=== PATIENT | female | born 1955 | race Caucasian/White ===

== ENCOUNTER 2020-08-15 19:38 | Inpatient (IN) | payer OTHER ==
[2020-08-15] MEDS ORDERED: Ondansetron 4 MG/2 ML SDV IVPUSH ONE (20:14)
[2020-08-15] MEDS ORDERED: Sodium Chloride 0.9% 1,000 ML IV SCH (20:15)
--- NOTE | 2020-08-15 20:16 | EDM.PDOC ---
ED HPI GENERAL MEDICAL PROBLEM - General Chief Complaint: Gastrointestinal Problem Stated Complaint: SWOLOWED A COUPLE OUNCES OF ANTI FREEZE Time Seen by Provider: 08/15/20 19:48 Source of Information: Reports: Patient, Family () History Limitations: Reports: No Limitations - History of Present Illness INITIAL COMMENTS - FREE TEXT/NARRATIVE: Mrs. Dominique is a very pleasant 65-year-old woman who now presents to the ED after accidentally drinking some [employer] washer fluid containing methanol around 19:20 tonight. She states that her had [employer] Washer -20 degrees fluid in a bottle, and that she took a couple of swings from it, thinking that it was a beverage, before realizing that it tasted funny. The label on the [employer] washer jug indicates the ingredients as water, methyl alcohol, and dye, but does not give the relative percentages. The patient contacted Poison Control, who recommended that she come to the ED for evaluation. We in turn spoke to Poison Control, who advised us that the patient may have consumed a toxic dose, and therefore recommended that we start her on fomepizole. The patient states that she is nauseated, but she has not vomited. She denies having any abdominal pain. The patient acknowledges that she drank 1 glass of wine earlier tonight, as well. Here in the ED, the patient's initial BP is found to be elevated at 185/90, otherwise, she is hemodynamic stable, afebrile, saturating 95% on room air. Other than tonight's event, the patient denies having a recent fever, chills, sore throat, ear pain, nasal or sinus congestion, cough, dyspnea, chest pain, palpitations, nausea, vomiting, constipation, diarrhea, abdominal pain, urinary symptoms, recent weight gain or weight loss, recent bloody bowel movements or black bowel movements, recent joint aches, headaches, or rashes. The patient and her are visiting from [facility]. - Related Data Allergies Allergy/AdvReac Type Severity Reaction Status Date / Time No Known Allergies Allergy Verified 08/15/20 19:45 Home Meds: Home Meds Levothyroxine Sodium [Synthroid] 150 mcg PO DAILY 08/15/20 [History] Losartan [Cozaar] 50 mg PO DAILY 08/15/20 [History] Past Medical History Cardiovascular History: Reports: Hypertension Musculoskeletal History: Reports: Osteoarthritis Endocrine/Metabolic History: Reports: Hypothyroidism (following thyroidectomy), Obesity/BMI 30+ - Past Surgical History HEENT Surgical History: Reports: Naso-Sinus Surgery (x 2) Female Surgical History: Reports: Section (x 1) Endocrine Surgical History: Reports: Thyroidectomy (2011, due to multiple nodules) Musculoskeletal Surgical History: Reports: Knee Replacement (bilateral) Social & Family History - Tobacco Use Tobacco Use Status *Q: Never Tobacco User Second Hand Smoke Exposure: No - Alcohol Use Alcohol Use History: Yes Alcohol Use Frequency: Socially - Recreational Drug Use Recreational Drug Use: Yes Drug Use in Last 12 Months: Yes Recreational Drug Type: Reports: Marijuana/Hashish (oral THC/CBD drops regularly) - Living Situation & Occupation Living situation: Reports: , with Spouse Occupation: Retired ED ROS GENERAL - Review of Systems Review Of Systems: Comprehensive ROS is negative, except as noted in HPI. ED EXAM, GENERAL - Physical Exam Exam: See Below Exam Limited By: No Limitations General Appearance: Alert, WD/WN, No Apparent Distress Eye Exam: Bilateral Eye: EOMI, Normal Inspection Ears: Normal External Exam, Hearing Grossly Normal Nose: Normal Inspection Throat/Mouth: Normal Inspection, Normal Lips, Normal Voice, No Airway Compromise Head: Atraumatic, Normocephalic Neck: Normal Inspection, Full Range of Motion Respiratory/Chest: No Respiratory Distress, Lungs Clear, Normal Breath Sounds, No Accessory Muscle Use Cardiovascular: Normal Peripheral Pulses, Regular Rate, Rhythm, No Edema, No Gallop, No JVD, No Murmur, No Rub Peripheral Pulses: 3+: Radial (L), Radial (R) GI/Abdominal: Normal Bowel Sounds, Soft, Non-Tender, No Organomegaly, No Distention, No Abnormal Bruit, No Mass Back Exam: Normal Inspection, Full Range of Motion, NT Extremities: Normal Inspection, Normal Range of Motion, No Pedal Edema, Normal Capillary Refill Neurological: Alert, Oriented, Normal Cognition, No Motor/Sensory Deficits Psychiatric: Normal Affect Skin Exam: Warm, Dry, Intact, Normal Color, No Rash #1 Interpretation EKG Date: 08/15/20 Time: 20:17 Rhythm: NSR Rate (Beats/Min): 77 [place]: Normal P-Wave: Enlarged (LAE) QRS: Other (Late transition) ST-T: Normal QT: Normal Comparison: NA - No Prior EKG Course - Vital Signs Last Recorded V/S: Last Vital Signs Temp 36.4 C 08/15/20 19:43 Pulse 79 08/15/20 19:43 Resp 16 08/15/20 19:43 BP 185/90 H 08/15/20 19:43 Pulse Ox 95 08/15/20 19:43 - Orders/Labs/Meds Orders: Active Orders 24 hr Category Date Time Status Accu Check [Blood Glucose Check, Bedside] [] ONETIME Care 08/15/20 20:05 Active EKG Documentation Completion [] STAT Care 08/15/20 20:05 Active Fomepizole 1 gm Med 08/15/20 21:00 Active Sodium Chloride 0.9% [Normal Saline] 100 ml IV Q12HR Sodium Chloride 0.9% [Normal Saline] 1,000 ml Med 08/15/20 20:15 Active IV ASDIRECTED Medication Orders Fomepizole 1 gm/ Sodium (Chloride) 101 mls @ 240.38 mls/hr IV Q12HR [facility] Last Admin: 08/15/20 20:29 Dose: 2.38 gm/hr, 240.38 mls/hr Documented by: DANILO Sodium Chloride (Normal Saline) 1,000 mls @ 150 mls/hr IV ASDIRECTED [facility] Last Admin: 08/15/20 20:29 Dose: 150 mls/hr Documented by: DANILO Labs: Laboratory Tests 08/15/20 08/15/20 08/15/20 Range/Units 19:54 19:54 20:20 Puncture Site Lt radial ABG pH 7.41 (7.35-7.45) ABG pCO2 38.1 (35.0-45.0) mmHg ABG pO2 82.0 (80.0-100.0) mmHg ABG HCO3 23.7 (22.0-26.0) meq/L ABG O2 Saturation 96.5 (96.0-97.0) % ABG Base Excess -0.2 (-2-2.0) Brien Test Positive A-a Gradient 20 mmHg O2 Delivery Device Room air FiO2 21.00 (21.00-100.00) % Sodium 134 L (136-145) mEq/L Potassium 3.8 (3.5-5.1) mEq/L Chloride 98 (98-107) mEq/L Carbon Dioxide 25 (21-32) mEq/L Anion Gap 14.8 (5-15) BUN 9 (7-18) mg/dL Creatinine 0.7 (0.55-1.02) mg/dL Est Cr Clr Drug Dosing 69.19 mL/min Estimated GFR (MDRD) > 60 (>60) mL/min BUN/Creatinine Ratio 12.9 L (14-18) Glucose 104 (80-115) mg/dL Serum Osmolality 291 (280-300) mosm/kg Calcium 8.9 (8.5-10.1) mg/dL Total Bilirubin 0.2 (0.2-1.0) mg/dL AST 28 (15-37) U/L ALT 64 H (14-59) U/L Alkaline Phosphatase 95 (46-116) U/L Total Protein 7.2 (6.4-8.2) g/dl Albumin 3.9 (3.4-5.0) g/dl Globulin 3.3 gm/dL Albumin/Globulin Ratio 1.2 (1-2) Salicylates 2.2 L (2.8-20) mg/dL Acetaminophen 0 L (10-30) ug/mL Ethyl Alcohol 0.00 (0.00) gm% Meds: Medications Generic Name Dose Route Start Last Admin Trade Name Freq PRN Reason Stop Dose Admin Fomepizole 1 gm/ Sodium 101 mls @ 240.38 mls/hr 08/15/20 21:00 08/15/20 20:29 Chloride IV 2.38 gm/hr Q12HR [place] 240.38 mls/hr Administration 2.38 GM/HR Sodium Chloride 1,000 mls @ 150 mls/hr 08/15/20 20:15 08/15/20 20:29 Normal Saline IV 150 mls/hr ASDIRECTED [place] Administration Discontinued Medications Generic Name Dose Route Start Last Admin Trade Name Freq PRN Reason Stop Dose Admin Ondansetron HCl 4 mg 08/15/20 20:14 08/15/20 20:29 Zofran IVPUSH 08/15/20 20:15 4 mg ONETIME ONE Administration - Re-Assessments/Exams Free Text/Narrative Re-Assessment/Exam: 08/15/20 20:13 As above, the patient accidentally drank about 2 ounces of a windshield wiper fluid that contained methanol. In addition, she states that she had 1 glass of wine earlier tonight. She has nausea, but has not vomited, and she denies having any abdominal pain. She is lucid with no suggestion of an altered mental status. I have ordered a work-up that includes an Accu-Chek, blood work that includes an ABG, a CMP, and a serum osmolality, among other tests. She will be started on fomepizole, along with IV fluid and IV Zofran. 08/15/20 21:11 The patient's QTc on her ECG is within normal limits. Her CMP is remarkable for a sodium slightly depressed at 134, and an ALT slightly elevated at 64, with an AST normal at 28, with the remainder of her CMP being unremarkable. Her serum osmolality is within normal limits at 291. Her salicylate level is within normal limits at 2.2. Her acetaminophen level is 0. Her EtOH level is 0.00. Her ABG represents a mild primary respiratory alkalosis with full metabolic compensation. 08/15/20 21:26 Test results discussed with Rakesh from Poison Control. If we could get a methanol level on the patient, and found that it was low, we could and treatment sooner, however, the closest facility that is able to check a methanol level is in [place]. We will therefore have to continue treatment with omeprazole. She received the loading dose already. The maintenance dose of 10 mg/kg every 12 hours x 4, starting 12 hours after the loading dose, therefore she will need to remain hospitalized for the next 2 and a half days. 08/15/20 21:45 The above was discussed with the patient. She is shocked, but agreeable to being admitted. We do have one medical bed available. I then spoke to her , who is also agreeable. 08/15/20 21:[address] Caballero. He agreed to admit the patient to the medical floor. A swab for the SARS-CoV-2 virus has been sent, but has not yet resulted. Departure - Departure Time of Disposition: 21:49 Disposition: Admitted As Inpatient 66 Condition: Good Clinical Impression: Accidental poisoning by methanol - Discharge Information *PRESCRIPTION DRUG MONITORING PROGRAM REVIEWED*: Not Applicable *COPY OF PRESCRIPTION DRUG MONITORING REPORT IN PATIENT ANNETTE: Not Applicable Referrals: PCP,Not In Area [Primary Care Provider] - Forms: ED Department Discharge Sepsis Event Note (ED) - Evaluation Sepsis Screening Result: No Definite Risk - Focused Exam Vital Signs: Vital Signs Temp Pulse Resp BP Pulse Ox 08/15/20 19:43 36.4 C 79 16 185/90 H 95 - My Orders Last 24 Hours: My Active Orders 08/15/20 20:05 Accu Check [Blood Glucose Check, Bedside] [RC] ONETIME EKG Documentation Completion [RC] STAT 08/15/20 20:15 Sodium Chloride 0.9% [Normal Saline] 1,000 ml IV ASDIRECTED 08/15/20 21:00 Fomepizole 1 gm Sodium Chloride 0.9% [Normal Saline] 100 ml IV Q12HR - Assessment/Plan Last 24 Hours: My Active Orders 08/15/20 20:05 Accu Check [Blood Glucose Check, Bedside] [RC] ONETIME EKG Documentation Completion [RC] STAT 08/15/20 20:15 Sodium Chloride 0.9% [Normal Saline] 1,000 ml IV ASDIRECTED 08/15/20 21:00 Fomepizole 1 gm Sodium Chloride 0.9% [Normal Saline] 100 ml IV Q12HR
[2020-08-15 20:29] LABS: ACETAMINOPHEN 0 ug/mL (10-30)
[2020-08-16] MEDS ORDERED: Losartan 25 MG Tab PO ONE (00:15)
[2020-08-16] MEDS ORDERED: Sodium Chloride 0.9% 1,000 ML IV SCH (01:15)
--- NOTE | 2020-08-16 06:59 | PCM.HP.2 ---
H&P History of Present Illness - General Date of Service: 08/16/20 Admit Problem/Dx: Admission Diagnosis/Problem Admission Diagnosis/Problem Toxic effect of methanol, unintentional Source of Information: Patient History Limitations: Reports: No Limitations - History of Present Illness Initial Comments - Free Text/Narative: Patient is a 65-year-old lady who had presented to the emergency department after accidental consumption of windshield cleaning fluid of which methanol was a deleon component. The patient says that she may have taken several sips and has had some nausea without vomiting. The patient says that she feels good today. She has no complaints. Both the patient and her are in transit to [facility]. In the emergency department Poison control was consulted and it was recommended that the patient be started on fomepizole in the emergency de partment. The patient was admitted secondary to the IV treatment and the use of IV Zofran. The patient also has been taking medication for hypertension as well as her hypothyroidism due to a previous thyroidectomy. The patient does not use tobacco. Onset of Symptoms: Reports: Sudden Duration of Symptoms: Reports: Hour(s):, Improving Location: Reports: Generalized Improves with: Reports: None Worsens with: Reports: None Associated Symptoms: Reports: Nausea/Vomiting - Related Data Allergies/Adverse Reactions: Allergies Allergy/AdvReac Type Severity Reaction Status Date / Time No Known Allergies Allergy Verified 08/15/20 19:45 Home Medications: Home Meds Levothyroxine Sodium [Synthroid] 150 mcg PO 0600 08/15/20 [History] RX: Losartan [Cozaar] 50 mg PO BEDTIME 08/15/20 [History] Past Medical History HEENT History: Reports: None Cardiovascular History: Reports: Hypertension Respiratory History: Reports: None Gastrointestinal History: Reports: None Genitourinary History: Reports: None Musculoskeletal History: Reports: Osteoarthritis Neurological History: Reports: None Psychiatric History: Reports: None Endocrine/Metabolic History: Reports: Hypothyroidism, Obesity/BMI 30+ Hematologic History: Reports: None Immunologic History: Reports: None Dermatologic History: Reports: None - Infectious Disease History Infectious Disease History: Reports: None - Past Surgical History HEENT Surgical History: Reports: Naso-Sinus Surgery, Other (See Below) Other HEENT Surgeries/Procedures: X2 Cardiovascular Surgical History: Reports: None Female Surgical History: Reports: Section Endocrine Surgical History: Reports: Thyroidectomy Musculoskeletal Surgical History: Reports: Knee Replacement, Other (See Below) Other Musculoskeletal Surgeries/Procedures:: BLE Social & Family History - Family History Family Medical History: Noncontributory - Tobacco Use Tobacco Use Status *Q: Never Tobacco User Second Hand Smoke Exposure: No - Caffeine Use Caffeine Use: Reports: Coffee Other Caffeine Use: Drinks several cups daily - Alcohol Use Days Per Week of Alcohol Use: 7 Number of Drinks Per Day: 1 Total Drinks Per Week: 7 Date of Last Drink: 08/15/20 Time of Last Drink: 18:00 - Recreational Drug Use Recreational Drug Use: No Drug Use in Last 12 Months: Yes Recreational Drug Type: Reports: Marijuana/Hashish (oral THC/CBD drops regularly) - Living Situation & Occupation Living situation: Reports: , with Spouse Occupation: Retired H&P Review of Systems - Review of Systems: Review Of Systems: See Below General: Reports: No Symptoms HEENT: Reports: No Symptoms Pulmonary: Reports: No Symptoms Cardiovascular: Reports: No Symptoms Gastrointestinal: Reports: No Symptoms Genitourinary: Reports: No Symptoms Musculoskeletal: Reports: No Symptoms Skin: Reports: No Symptoms Psychiatric: Reports: No Symptoms Neurological: Reports: No Symptoms Hematologic/Lymphatic: Reports: No Symptoms Immunologic: Reports: No Symptoms Exam - Exam Exam: See Below - Vital Signs Vital Signs: Last Vital Signs Temp 36.7 C 08/16/20 04:49 Pulse 64 08/16/20 04:49 Resp 14 08/16/20 04:49 BP 135/77 08/16/20 04:49 Pulse Ox 97 08/16/20 04:49 Weight: 80.876 kg - Exam Quality Assessment: DVT Prophylaxis. No: Supplemental Oxygen General: Alert, Oriented, Cooperative HEENT: Conjunctiva Clear, EACs Clear, EOMI, Hearing Intact, Mucosa Moist & [place], Nares Patent Neck: Supple, Trachea Midline Lungs: Clear to Auscultation, Normal Respiratory Effort Cardiovascular: Regular Rate, Regular Rhythm GI/Abdominal Exam: Normal Bowel Sounds, Soft, Non-Tender, No Distention (Female) Exam: Deferred Rectal (Female) Exam: Deferred Back Exam: Normal Inspection, Full Range of Motion Extremities: Normal Inspection, Normal Range of Motion, No Pedal Edema Skin: Warm, Dry, Intact Neurological: Cranial Nerves Intact Neuro Extensive - Mental Status: Alert, Oriented x3 Neuro Extensive - Motor, Sensory, Reflexes: CN II-XII Intact, Normal Gait Psychiatric: Alert, Normal Affect, Normal Mood - Patient Data Lab Results Last 24 hrs: Laboratory Results - last 24 hr 08/15/20 08/15/20 08/15/20 Range/Units 19:54 19:54 20:20 Puncture Site Lt radial ABG pH 7.41 (7.35-7.45) ABG pCO2 38.1 (35.0-45.0) mmHg ABG pO2 82.0 (80.0-100.0) mmHg ABG HCO3 23.7 (22.0-26.0) meq/L ABG O2 Saturation 96.5 (96.0-97.0) % ABG Base Excess -0.2 (-2-2.0) Brien Test Positive A-a Gradient 20 mmHg O2 Delivery Device Room air FiO2 21.00 (21.00-100.00) % Sodium 134 L (136-145) mEq/L Potassium 3.8 (3.5-5.1) mEq/L Chloride 98 (98-107) mEq/L Carbon Dioxide 25 (21-32) mEq/L Anion Gap 14.8 (5-15) BUN 9 (7-18) mg/dL Creatinine 0.7 (0.55-1.02) mg/dL Est Cr Clr Drug Dosing 69.19 mL/min Estimated GFR (MDRD) > 60 (>60) mL/min BUN/Creatinine Ratio 12.9 L (14-18) Glucose 104 (80-115) mg/dL POC Glucose (80-115) mg/dL Serum Osmolality 291 (280-300) mosm/kg Calcium 8.9 (8.5-10.1) mg/dL Total Bilirubin 0.2 (0.2-1.0) mg/dL AST 28 (15-37) U/L ALT 64 H (14-59) U/L Alkaline Phosphatase 95 (46-116) U/L Total Protein 7.2 (6.4-8.2) g/dl Albumin 3.9 (3.4-5.0) g/dl Globulin 3.3 gm/dL Albumin/Globulin Ratio 1.2 (1-2) Salicylates 2.2 L (2.8-20) mg/dL Acetaminophen 0 L (10-30) ug/mL Ethyl Alcohol 0.00 (0.00) gm% SARS-CoV-2 RNA ([facility]CA) (NEGATIVE) 08/15/20 08/15/20 08/16/20 Range/Units 20:27 22:10 05:01 Puncture Site ABG pH (7.35-7.45) ABG pCO2 (35.0-45.0) mmHg ABG pO2 (80.0-100.0) mmHg ABG HCO3 (22.0-26.0) meq/L ABG O2 Saturation (96.0-97.0) % ABG Base Excess (-2-2.0) Brien Test A-a Gradient mmHg O2 Delivery Device FiO2 (21.00-100.00) % Sodium 136 (136-145) mEq/L Potassium 4.0 (3.5-5.1) mEq/L Chloride 102 (98-107) mEq/L Carbon Dioxide 27 (21-32) mEq/L Anion Gap 11.0 (5-15) BUN 9 (7-18) mg/dL Creatinine 0.6 (0.55-1.02) mg/dL Est Cr Clr Drug Dosing 80.72 mL/min Estimated GFR (MDRD) > 60 (>60) mL/min BUN/Creatinine Ratio 15.0 (14-18) Glucose 99 (80-115) mg/dL POC Glucose 109 (80-115) mg/dL Serum Osmolality (280-300) mosm/kg Calcium 8.5 (8.5-10.1) mg/dL Total Bilirubin 0.3 (0.2-1.0) mg/dL AST 26 (15-37) U/L ALT 57 (14-59) U/L Alkaline Phosphatase 70 (46-116) U/L Total Protein 6.4 (6.4-8.2) g/dl Albumin 3.5 (3.4-5.0) g/dl Globulin 2.9 gm/dL Albumin/Globulin Ratio 1.2 (1-2) Salicylates (2.8-20) mg/dL Acetaminophen (10-30) ug/mL Ethyl Alcohol (0.00) gm% SARS-CoV-2 RNA (LUCA) Negative (NEGATIVE) 08/16/20 Range/Units 06:15 Puncture Site Lt radial ABG pH 7.37 (7.35-7.45) ABG pCO2 43.3 (35.0-45.0) mmHg ABG pO2 73.0 L (80.0-100.0) mmHg ABG HCO3 24.2 (22.0-26.0) meq/L ABG O2 Saturation 93.8 L (96.0-97.0) % ABG Base Excess -0.8 (-2-2.0) Brien Test Positive A-a Gradient 23 mmHg O2 Delivery Device Room air FiO2 21.00 (21.00-100.00) % Sodium (136-145) mEq/L Potassium (3.5-5.1) mEq/L Chloride (98-107) mEq/L Carbon Dioxide (21-32) mEq/L Anion Gap (5-15) BUN (7-18) mg/dL Creatinine (0.55-1.02) mg/dL Est Cr Clr Drug Dosing mL/min Estimated GFR (MDRD) (>60) mL/min BUN/Creatinine Ratio (14-18) Glucose (80-115) mg/dL POC Glucose (80-115) mg/dL Serum Osmolality (280-300) mosm/kg Calcium (8.5-10.1) mg/dL Total Bilirubin (0.2-1.0) mg/dL AST (15-37) U/L ALT (14-59) U/L Alkaline Phosphatase (46-116) U/L Total Protein (6.4-8.2) g/dl Albumin (3.4-5.0) g/dl Globulin gm/dL Albumin/Globulin Ratio (1-2) Salicylates (2.8-20) mg/dL Acetaminophen (10-30) ug/mL Ethyl Alcohol (0.00) gm% SARS-CoV-2 RNA (LUCA) (NEGATIVE) Result Diagrams: 08/16/20 05:01 Sepsis Event Note - Evaluation Sepsis Screening Result: No Definite Risk - Focused Exam Vital Signs: Vital Signs Temp Temp Pulse Pulse Resp BP BP 08/16/20 04:49 36.7 C 64 14 135/77 08/16/20 00:17 146/95 H 08/15/20 23:58 36.8 C 74 16 146/95 H 08/15/20 19:43 36.4 C 79 16 185/90 H Pulse Ox 08/16/20 04:49 97 08/16/20 00:17 08/15/20 23:58 94 L 08/15/20 19:43 95 - Problem List (1) Accidental poisoning by methanol SNOMED Code(s): 950104429 ICD Code: T51.1X1A - TOXIC EFFECT OF METHANOL, ACCIDENTAL (UNINTENTIONAL), INIT Status: Acute Priority: High Current Visit: Yes Qualifiers: Encounter type: initial encounter Qualified Code(s): T51.1X1A - Toxic effect of methanol, accidental (unintentional), initial encounter (2) Hypertension SNOMED Code(s): 92903924 ICD Code: I10 - ESSENTIAL (PRIMARY) HYPERTENSION Status: Chronic Priority: High Current Visit: Yes Qualifiers: Hypertension type: essential hypertension Qualified Code(s): I10 - Essential (primary) hypertension (3) Acquired hypothyroidism SNOMED Code(s): 214070483 ICD Code: E03.9 - HYPOTHYROIDISM, UNSPECIFIED Status: Chronic Priority: Medium Current Visit: Yes Problem List Initiated/Reviewed/Updated: Yes Orders Last 24hrs: Active Orders 24 hr Category Date Time Status Patient Status [ADT] Routine ADT 08/15/20 23:11 Active Up ad Janice [RC] BID Care 08/16/20 01:15 Active Low Sodium [Sodium Restricted Diet] [DIET] Diet 08/16/20 Breakfast Active Fomepizole 1 gm Med 08/15/20 21:00 Active Sodium Chloride 0.9% [Normal Saline] 100 ml IV Q12HR Levothyroxine Med 08/16/20 09:00 Ordered 150 mcg PO 0600 Losartan Med 08/16/20 21:00 Ordered 50 mg PO BEDTIME Sodium Chloride 0.9% [Normal Saline] 1,000 ml Med 08/16/20 01:15 Active IV ASDIRECTED ECG Stress Exercise [OM.PC] Routine Oth 08/17/20 07:00 Ordered Code Status [Resuscitation Status] Routine Resus Stat 08/16/20 01:14 Ordered Medication Orders Fomepizole 1 gm/ Sodium (Chloride) 101 mls @ 240.38 mls/hr IV Q12HR [place] Last Admin: 08/15/20 20:29 Dose: 2.38 gm/hr, 240.38 mls/hr Documented by: DANILO Sodium Chloride (Normal Saline) 1,000 mls @ 100 mls/hr IV ASDIRECTED [place] Last Admin: 08/16/20 05:05 Dose: 100 mls/hr Documented by: TEREZA Levothyroxine Sodium (Levothyroxine) 150 mcg PO 0600 [facility] Non-Formulary Medication (Losartan) 50 mg PO BEDTIME [facility] Assessment/Plan Comment:: The patient is a 65-year-old lady who had apparently consumed relatively small amount of [place] pool cleaner that had methanol. Patient's initial blood gas was normal. The patient will be continued on fomepizole for now. The patient has a history of acquired hypothyroidism and hypertension and her medications have been continued. Patient will also have DVT prophylaxis with the use of Lovenox. She has been encouraged to ambulate. The records have indicated that the patie nt will need to be on the omeprazole for at least 2-1/2 days. If poison control concurs the patient might be appropriate for discharge today. This is due to the fact that the patient's laboratory testing is essentially normal. - Mortality Measure Prognosis:: Good
[2020-08-16] MEDS ORDERED: Ondansetron 4 MG Tab.DIS PO PRN (08:52)
[2020-08-16] MEDS ORDERED: Sodium Chloride 0.9% 10 ML Syringe FLUSH PRN (08:52)
[2020-08-16] MEDS: Levothyroxine 50 MCG Tab PO SCH (09:12)
[2020-08-16] MEDS: Enoxaparin 40 MG/0.4 ML Syringe SUBCUT SCH (12:05)
[2020-08-16] MEDS: Losartan 25 MG Tab PO SCH (20:58)
[2020-08-17] MEDS: Levothyroxine 50 MCG Tab PO SCH (05:28)
[2020-08-17] MEDS: Enoxaparin 40 MG/0.4 ML Syringe SUBCUT SCH (09:07)
--- NOTE | 2020-08-17 14:31 | PCM.PN ---
- General Info Date of Service: 08/17/20 Admission Dx/Problem (Free Text): Admission Diagnosis/Problem Admission Diagnosis/Problem Toxic effect of methanol, unintentional Subjective Update: Patient continues to have no symptoms. She is feeling well and continues with treatment for her methanol ingestion. Oral intake is good. I spoke with poison control who recommends a negative toxic alcohol level before stopping treatment with Fomepizole - Review of Systems General: Reports: No Symptoms HEENT: Reports: No Symptoms Pulmonary: Reports: No Symptoms Cardiovascular: Reports: No Symptoms Gastrointestinal: Reports: No Symptoms Musculoskeletal: Reports: No Symptoms Neurological: Reports: No Symptoms Psychiatric: Reports: No Symptoms - Patient Data Vitals - Most Recent: Last Vital Signs Temp 98.8 F 08/17/20 12:12 Pulse 69 08/17/20 12:12 Resp 16 08/17/20 12:12 BP 132/82 08/17/20 12:12 Pulse Ox 93 L 08/17/20 12:12 Weight - Most Recent: 80.785 kg I&O - Last 24 Hours: Intake & Output 08/16/20 08/17/20 08/17/20 22:59 06:59 14:59 Intake Total 3615 1700 360 Output Total 2700 2650 Balance 915 -950 360 Lab Results Last 24 Hours: Laboratory Results - last 24 hr 08/17/20 08/17/20 Range/Units 06:04 06:04 WBC 4.50 (3.98-10.04) K/mm3 RBC 4.46 (3.98-5.22) M/mm3 Hgb 12.7 (11.2-15.7) gm/dl Hct 39.8 (34.1-44.9) % MCV 89.2 (79.4-94.8) fl MCH 28.5 (25.6-32.2) pg MCHC 31.9 L (32.2-35.5) g/dl RDW Std Deviation 45.4 (36.4-46.3) fL Plt Count 254 (182-369) K/mm3 MPV 9.4 (9.4-12.3) fl Neut % (Auto) 48.1 (34.0-71.1) % Lymph % (Auto) 40.0 (19.3-51.7) % [place] % (Auto) 8.4 (4.7-12.5) % Eos % (Auto) 2.9 (0.7-5.8) Baso % (Auto) 0.4 (0.1-1.2) % Neut # (Auto) 2.16 (1.56-6.13) K/mm3 Lymph # (Auto) 1.80 (1.18-3.74) K/mm3 [place] # (Auto) 0.38 H (0.24-0.36) K/mm3 Eos # (Auto) 0.13 (0.04-0.36) K/mm3 Baso # (Auto) 0.02 (0.01-0.08) K/mm3 Sodium 138 (136-145) mEq/L Potassium 4.0 (3.5-5.1) mEq/L Chloride 104 (98-107) mEq/L Carbon Dioxide 25 (21-32) mEq/L Anion Gap 13.0 (5-15) BUN 8 (7-18) mg/dL Creatinine 0.6 (0.55-1.02) mg/dL Est Cr Clr Drug Dosing 80.72 mL/min Estimated GFR (MDRD) > 60 (>60) mL/min BUN/Creatinine Ratio 13.3 L (14-18) Glucose 100 (80-115) mg/dL Calcium 8.8 (8.5-10.1) mg/dL Total Bilirubin 0.2 (0.2-1.0) mg/dL AST 34 (15-37) U/L ALT 67 H (14-59) U/L Alkaline Phosphatase 76 (46-116) U/L Total Protein 6.4 (6.4-8.2) g/dl Albumin 3.5 (3.4-5.0) g/dl Globulin 2.9 gm/dL Albumin/Globulin Ratio 1.2 (1-2) Med Orders - Current: Current Medications Enoxaparin Sodium (Lovenox) 40 mg SUBCUT DAILY [facility] Last Admin: 08/17/20 09:07 Dose: Not Given Documented by: Fomepizole 1 gm/ Sodium (Chloride) 101 mls @ 240.38 mls/hr IV Q12HR [facility] Last Admin: 08/17/20 09:08 Dose: 2.38 gm/hr, 240.38 mls/hr Documented by: Levothyroxine Sodium (Synthroid) 150 mcg PO 0600 [facility] Last Admin: 08/17/20 05:28 Dose: 150 mcg Documented by: Losartan Potassium (Cozaar) 50 mg PO BEDTIME [facility] Last Admin: 08/16/20 20:58 Dose: 50 mg Documented by: Ondansetron HCl (Zofran Odt) 4 mg PO Q6H PRN PRN Reason: nausea, able to take PO Sodium Chloride (Saline Flush) 10 ml FLUSH ASDIRECTED PRN PRN Reason: Keep Vein Open Discontinued Medications Sodium Chloride (Normal Saline) 1,000 mls @ 150 mls/hr IV ASDIRECTED [facility] Last Admin: 08/15/20 20:29 Dose: 150 mls/hr Documented by: Sodium Chloride (Normal Saline) 1,000 mls @ 100 mls/hr IV ASDIRECTED [facility] Last Admin: 08/16/20 05:05 Dose: 100 mls/hr Documented by: Losartan Potassium (Cozaar) 50 mg PO ONETIME ONE Stop: 08/16/20 00:16 Last Admin: 08/16/20 00:17 Dose: 50 mg Documented by: Ondansetron HCl (Zofran) 4 mg IVPUSH ONETIME ONE Stop: 08/15/20 20:15 Last Admin: 08/15/20 20:29 Dose: 4 mg Documented by: - Exam Quality Assessment: No: Supplemental Oxygen General: Alert, Oriented HEENT: Pupils Equal, Mucous Membr. Moist/[place] Neck: Supple Lungs: Clear to Auscultation, Normal Respiratory Effort Cardiovascular: Regular Rate, Regular Rhythm GI/Abdominal Exam: Normal Bowel Sounds, Soft, Non-Tender, No Organomegaly, No Distention, No Abnormal Bruit, No Mass Extremities: Normal Inspection, Normal Range of Motion, Non-Tender, No Pedal Edema, Normal Capillary Refill Skin: Warm, Dry, Intact Neurological: No New Focal Deficit Psy/Mental Status: Alert, Normal Affect, Normal Mood Sepsis Event Note - Evaluation Sepsis Screening Result: No Definite Risk - Focused Exam Vital Signs: Vital Signs Temp Pulse Resp BP Pulse Ox 08/17/20 12:12 98.8 F 69 16 132/82 93 L 08/17/20 11:22 98.1 F 72 16 120/89 93 L 08/17/20 08:04 98.1 F 71 14 134/86 93 L 08/17/20 07:26 97.9 F 58 L 16 134/74 94 L 08/17/20 05:31 98.1 F 66 18 119/58 L 94 L - Problem List & Annotations (1) Accidental poisoning by methanol SNOMED Code(s): 785573261 Code(s): T51.1X1A - TOXIC EFFECT OF METHANOL, ACCIDENTAL (UNINTENTIONAL), INIT Status: Acute Priority: High Current Visit: Yes Qualifiers: Encounter type: initial encounter Qualified Code(s): T51.1X1A - Toxic effect of methanol, accidental (unintentional), initial encounter (2) Acquired hypothyroidism SNOMED Code(s): 457520216 Code(s): E03.9 - HYPOTHYROIDISM, UNSPECIFIED Status: Chronic Priority: Medium Current Visit: Yes (3) Hypertension SNOMED Code(s): 13656260 Code(s): I10 - ESSENTIAL (PRIMARY) HYPERTENSION Status: Chronic Priority: High Current Visit: Yes Qualifiers: Hypertension type: essential hypertension Qualified Code(s): I10 - Essential (primary) hypertension - Problem List Review Problem List Initiated/Reviewed/Updated: Yes - My Orders Last 24 Hours: My Active Orders 08/17/20 06:04 ETHYLENE GLYCOL [REF] Routine - Plan Plan:: 08/16/2020 The patient is a 65-year-old lady who had apparently consumed 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 Patient's initial blood gas was normal. The patient will be continued on fomepizole for now. The patient has a history of acquired hypothyroidism and hypertension and her medications have been continued. Patient will also have DVT prophylaxis with the use of Lovenox. She has been encouraged to ambulate. The records have indicated that the patient will need to be on the omeprazole for at least 2-1/2 days. If poison control concurs the patient might be appropriate for discharge today. This is due to the fact that the patient's laboratory testing is essentially normal. 08/17/2020 Patient continues to feel well. She is tolerating diet and has no significant symptoms. Poison control recommends continuing with fomepizole until a negative toxic alcohol levels. Unfortunately, this is a send out test and we may not get her first test and tell tomorrow. We will continue her treatment until we are completely comfortable with a negative result.
[2020-08-17] MEDS ORDERED: Docusate Sodium 100 MG Cap PO PRN (17:17)
[2020-08-17] MEDS: Losartan 25 MG Tab PO SCH (21:03)
[2020-08-17] MEDS: Fomepizole 1.2 GM in Sodium Chloride 0.9% 100 ML IV SCH (21:04)
[2020-08-18] MEDS: Levothyroxine 50 MCG Tab PO SCH (06:25)
[2020-08-18] MEDS: Fomepizole 1.2 GM in Sodium Chloride 0.9% 100 ML IV SCH ×2 (09:59→20:50)
[2020-08-18] MEDS: Enoxaparin 40 MG/0.4 ML Syringe SUBCUT SCH (10:00)
--- NOTE | 2020-08-18 15:18 | PCM.PN ---
- General Info Date of Service: 08/18/20 Admission Dx/Problem (Free Text): Admission Diagnosis/Problem Admission Diagnosis/Problem Toxic effect of methanol, unintentional Subjective Update: She continues to do well without any symptoms or complications. I spoke with poison control who recommends a negative toxic alcohol level before stopping treatment with Fomepizole Functional Status: Reports: Pain Controlled - Review of Systems General: Reports: No Symptoms HEENT: Reports: No Symptoms Pulmonary: Reports: No Symptoms Cardiovascular: Reports: No Symptoms Gastrointestinal: Reports: No Symptoms Musculoskeletal: Reports: No Symptoms Skin: Reports: No Symptoms Neurological: Reports: No Symptoms - Patient Data Vitals - Most Recent: Last Vital Signs Temp 98.4 F 08/18/20 14:38 Pulse 83 08/18/20 14:38 Resp 16 08/18/20 14:38 BP 143/68 H 08/18/20 14:38 Pulse Ox 92 L 08/18/20 14:38 Weight - Most Recent: 80.195 kg I&O - Last 24 Hours: Intake & Output 08/18/20 08/18/20 08/18/20 06:59 14:59 22:59 Intake Total 0507 203 8744 Output Total 2800 Balance -6961 701 9114 Lab Results Last 24 Hours: Laboratory Results - last 24 hr 08/18/20 Range/Units 09:10 Sodium 138 (136-145) mEq/L Potassium 4.2 (3.5-5.1) mEq/L Chloride 102 (98-107) mEq/L Carbon Dioxide 25 (21-32) mEq/L Anion Gap 15.2 H (5-15) BUN 7 (7-18) mg/dL Creatinine 0.7 (0.55-1.02) mg/dL Est Cr Clr Drug Dosing 69.19 mL/min Estimated GFR (MDRD) > 60 (>60) mL/min BUN/Creatinine Ratio 10.0 L (14-18) Glucose 145 H (80-115) mg/dL Calcium 9.2 (8.5-10.1) mg/dL Total Bilirubin 0.3 (0.2-1.0) mg/dL AST 25 (15-37) U/L ALT 67 H (14-59) U/L Alkaline Phosphatase 82 (46-116) U/L Total Protein 7.1 (6.4-8.2) g/dl Albumin 3.8 (3.4-5.0) g/dl Globulin 3.3 gm/dL Albumin/Globulin Ratio 1.2 (1-2) Med Orders - Current: Current Medications Docusate Sodium (Colace) 100 mg PO BID PRN PRN Reason: Constipation Enoxaparin Sodium (Lovenox) 40 mg SUBCUT DAILY [facility] Last Admin: 08/18/20 10:00 Dose: Not Given Documented by: Fomepizole 1.2 gm/ Sodium (Chloride) 101.2 mls @ 200 mls/hr IV Q12HR [facility] Last Admin: 08/18/20 09:59 Dose: 200 mls/hr Documented by: Levothyroxine Sodium (Synthroid) 150 mcg PO 0600 [facility] Last Admin: 08/18/20 06:25 Dose: 150 mcg Documented by: Losartan Potassium (Cozaar) 50 mg PO BEDTIME [facility] Last Admin: 08/17/20 21:03 Dose: 50 mg Documented by: Ondansetron HCl (Zofran Odt) 4 mg PO Q6H PRN PRN Reason: nausea, able to take PO Sodium Chloride (Saline Flush) 10 ml FLUSH ASDIRECTED PRN PRN Reason: Keep Vein Open Discontinued Medications Fomepizole 1 gm/ Sodium (Chloride) 101 mls @ 240.38 mls/hr IV Q12HR [facility] Last Admin: 08/17/20 09:08 Dose: 2.38 gm/hr, 240.38 mls/hr Documented by: Sodium Chloride (Normal Saline) 1,000 mls @ 150 mls/hr IV ASDIRECTED [facility] Last Admin: 08/15/20 20:29 Dose: 150 mls/hr Documented by: Sodium Chloride (Normal Saline) 1,000 mls @ 100 mls/hr IV ASDIRECTED [facility] Last Admin: 08/16/20 05:05 Dose: 100 mls/hr Documented by: Losartan Potassium (Cozaar) 50 mg PO ONETIME ONE Stop: 08/16/20 00:16 Last Admin: 08/16/20 00:17 Dose: 50 mg Documented by: Ondansetron HCl (Zofran) 4 mg IVPUSH ONETIME ONE Stop: 08/15/20 20:15 Last Admin: 08/15/20 20:29 Dose: 4 mg Documented by: - Exam Quality Assessment: No: Supplemental Oxygen General: Alert, Oriented HEENT: Pupils Equal, Mucous Membr. Moist/[place] Neck: Supple Lungs: Clear to Auscultation, Normal Respiratory Effort Cardiovascular: Regular Rate, Regular Rhythm GI/Abdominal Exam: Normal Bowel Sounds, Soft, Non-Tender, No Organomegaly, No Distention, No Abnormal Bruit, No Mass Extremities: Normal Inspection, Normal Range of Motion, Non-Tender, No Pedal Edema, Normal Capillary Refill Sepsis Event Note - Evaluation Sepsis Screening Result: No Definite Risk - Focused Exam Vital Signs: Vital Signs Temp Pulse Resp BP Pulse Ox Pulse Ox 08/18/20 14:38 98.4 F 83 16 143/68 H 92 L 08/18/20 11:03 98.2 F 70 16 123/78 93 L 08/18/20 08:07 98.4 F 68 16 131/82 95 08/18/20 08:00 95 08/18/20 04:25 98.1 F 69 16 137/94 H 95 - Problem List & Annotations (1) Accidental poisoning by methanol SNOMED Code(s): 949139108 Code(s): T51.1X1A - TOXIC EFFECT OF METHANOL, ACCIDENTAL (UNINTENTIONAL), INIT Status: Acute Priority: High Current Visit: Yes Qualifiers: Encounter type: initial encounter Qualified Code(s): T51.1X1A - Toxic effect of methanol, accidental (unintentional), initial encounter (2) Acquired hypothyroidism SNOMED Code(s): 110428272 Code(s): E03.9 - HYPOTHYROIDISM, UNSPECIFIED Status: Chronic Priority: Medium Current Visit: Yes (3) Hypertension SNOMED Code(s): 12475100 Code(s): I10 - ESSENTIAL (PRIMARY) HYPERTENSION Status: Chronic Priority: High Current Visit: Yes Qualifiers: Hypertension type: essential hypertension Qualified Code(s): I10 - Essential (primary) hypertension - Problem List Review Problem List Initiated/Reviewed/Updated: Yes - My Orders Last 24 Hours: My Active Orders 08/17/20 17:17 Docusate Sodium [Colace] 100 mg PO BID PRN 08/17/20 21:00 Fomepizole 1.2 gm Sodium Chloride 0.9% [Normal Saline] 100 ml IV Q12HR 08/18/20 09:10 [facility] TEST Routine - Plan Plan:: 08/16/2020 The patient is a 65-year-old lady who had apparently consumed relatively small amount of [employer] lens cleaner that had methanol. Patient's initial blood gas was normal. The patient will be continued on fomepizole for now. The patient has a history of acquired hypothyroidism and hypertension and her medications have been continued. Patient will also have DVT prophylaxis with the use of Lovenox. She has been encouraged to ambulate. The records have indicated that the patient will need to be on the omeprazole for at least 2-1/2 days. If poison control concurs the patient might be appropriate for discharge today. This is due to the fact that the patient's laboratory testing is essentially normal. 08/17/2020 Patient continues to feel well. She is tolerating diet and has no significant symptoms. Poison control recommends continuing with fomepizole until a negative toxic alcohol levels. Unfortunately, this is a send out test and we may not get her first test and tell tomorrow. We will continue her treatment until we are completely comfortable with a negative result. 08/18/2020 Patient continues on fomepizole without adverse events. Anion gap with slightly elevated today. Continue on fomepizole. Unfortunately, we will not be able to get the methanol level in a reasonable time. Current plan is to give her another dose of fomepizole tonight and recheck BMP in the morning. Continue following with poison control.
[2020-08-18] MEDS: Losartan 25 MG Tab PO SCH (20:50)
[2020-08-19] MEDS: Levothyroxine 50 MCG Tab PO SCH (05:35)
[2020-08-19] MEDS: Enoxaparin 40 MG/0.4 ML Syringe SUBCUT SCH (08:54)
[2020-08-19] MEDS: Fomepizole 1.2 GM in Sodium Chloride 0.9% 100 ML IV SCH (12:31)
--- NOTE | 2020-08-19 14:56 | PCM.PN ---
- General Info Date of Service: 08/19/20 Admission Dx/Problem (Free Text): Admission Diagnosis/Problem Admission Diagnosis/Problem Toxic effect of methanol, unintentional Subjective Update: Patient continues to feel well. She has a good appetite and no nausea. Functional Status: Reports: Pain Controlled - Review of Systems General: Reports: No Symptoms HEENT: Reports: No Symptoms Pulmonary: Reports: No Symptoms Cardiovascular: Reports: No Symptoms Gastrointestinal: Reports: No Symptoms Musculoskeletal: Reports: No Symptoms Skin: Reports: No Symptoms Neurological: Reports: No Symptoms - Patient Data Vitals - Most Recent: Last Vital Signs Temp 97.5 F 08/19/20 11:31 Pulse 70 08/19/20 11:31 Resp 18 08/19/20 11:31 BP 134/97 H 08/19/20 11:31 Pulse Ox 92 L 08/19/20 11:31 Weight - Most Recent: 80.513 kg I&O - Last 24 Hours: Intake & Output 08/18/20 08/19/20 08/19/20 22:59 06:59 14:59 Intake Total 1980 1000 240 Output Total 2100 2750 Balance -120 -1750 240 Lab Results Last 24 Hours: Laboratory Results - last 24 hr 08/19/20 08/19/20 Range/Units 08:34 11:23 Sodium 136 136 (136-145) mEq/L Potassium 4.5 4.3 (3.5-5.1) mEq/L Chloride 99 101 (98-107) mEq/L Carbon Dioxide 29 27 (21-32) mEq/L Anion Gap 12.5 12.3 (5-15) BUN 10 9 (7-18) mg/dL Creatinine 0.7 0.6 (0.55-1.02) mg/dL Est Cr Clr Drug Dosing 69.19 80.72 mL/min Estimated GFR (MDRD) > 60 > 60 (>60) mL/min BUN/Creatinine Ratio 14.3 15.0 (14-18) Glucose 157 H 110 (80-115) mg/dL Calcium 9.2 8.9 (8.5-10.1) mg/dL Med Orders - Current: Current Medications Docusate Sodium (Colace) 100 mg PO BID PRN PRN Reason: Constipation Enoxaparin Sodium (Lovenox) 40 mg SUBCUT DAILY [facility] Last Admin: 10/28/20 08:54 Dose: Not Given Documented by: Levothyroxine Sodium (Synthroid) 150 mcg PO 0600 [facility] Last Admin: 08/19/20 05:35 Dose: 150 mcg Documented by: Losartan Potassium (Cozaar) 50 mg PO BEDTIME [facility] Last Admin: 08/18/20 20:50 Dose: 50 mg Documented by: Ondansetron HCl (Zofran Odt) 4 mg PO Q6H PRN PRN Reason: nausea, able to take PO Sodium Chloride (Saline Flush) 10 ml FLUSH ASDIRECTED PRN PRN Reason: Keep Vein Open Discontinued Medications Fomepizole 1 gm/ Sodium (Chloride) 101 mls @ 240.38 mls/hr IV Q12HR [facility] Last Admin: 08/17/20 09:08 Dose: 2.38 gm/hr, 240.38 mls/hr Documented by: Sodium Chloride (Normal Saline) 1,000 mls @ 150 mls/hr IV ASDIRECTED [facility] Last Admin: 08/15/20 20:29 Dose: 150 mls/hr Documented by: Sodium Chloride (Normal Saline) 1,000 mls @ 100 mls/hr IV ASDIRECTED [facility] Last Admin: 08/16/20 05:05 Dose: 100 mls/hr Documented by: Fomepizole 1.2 gm/ Sodium (Chloride) 101.2 mls @ 200 mls/hr IV Q12HR [facility] Last Admin: 08/19/20 12:31 Dose: Not Given Documented by: Losartan Potassium (Cozaar) 50 mg PO ONETIME ONE Stop: 08/16/20 00:16 Last Admin: 08/16/20 00:17 Dose: 50 mg Documented by: Ondansetron HCl (Zofran) 4 mg IVPUSH ONETIME ONE Stop: 08/15/20 20:15 Last Admin: 08/15/20 20:29 Dose: 4 mg Documented by: - Exam General: Alert, Oriented HEENT: Pupils Equal, Mucous Membr. Moist/[place] Neck: Supple Lungs: Clear to Auscultation, Normal Respiratory Effort Cardiovascular: Regular Rate, Regular Rhythm GI/Abdominal Exam: Normal Bowel Sounds, Soft, Non-Tender, No Organomegaly, No Distention, No Abnormal Bruit Extremities: Normal Inspection, Normal Range of Motion, Non-Tender, No Pedal Edema, Normal Capillary Refill Peripheral Pulses: 2+: Posterior Tibial (L), Posterior Tibial (R), Dorsalis Pedis (L), Dorsalis Pedis (R) Skin: Warm, Dry, Intact Psy/Mental Status: Alert, Normal Affect, Normal Mood Sepsis Event Note - Evaluation Sepsis Screening Result: No Definite Risk - Focused Exam Vital Signs: Vital Signs Temp Pulse Resp BP Pulse Ox 08/19/20 11:31 97.5 F 70 18 134/97 H 92 L 08/19/20 07:27 96.6 F L 67 18 134/82 96 08/19/20 05:09 97.7 F 71 16 135/98 H 96 - Problem List & Annotations (1) Accidental poisoning by methanol SNOMED Code(s): 447917345 Code(s): T51.1X1A - TOXIC EFFECT OF METHANOL, ACCIDENTAL (UNINTENTIONAL), INIT Status: Acute Priority: High Current Visit: Yes Qualifiers: Encounter type: initial encounter Qualified Code(s): T51.1X1A - Toxic effect of methanol, accidental (unintentional), initial encounter (2) Acquired hypothyroidism SNOMED Code(s): 081076884 Code(s): E03.9 - HYPOTHYROIDISM, UNSPECIFIED Status: Chronic Priority: Medium Current Visit: Yes (3) Hypertension SNOMED Code(s): 58550982 Code(s): I10 - ESSENTIAL (PRIMARY) HYPERTENSION Status: Chronic Priority: High Current Visit: Yes Qualifiers: Hypertension type: essential hypertension Qualified Code(s): I10 - Essential (primary) hypertension - Problem List Review Problem List Initiated/Reviewed/Updated: Yes - My Orders Last 24 Hours: My Active Orders 08/19/20 14:00 BASIC METABOLIC PANEL,BMP [CHEM] Q3H 08/19/20 17:00 BASIC METABOLIC PANEL,BMP [CHEM] Q3H 08/19/20 20:00 BASIC METABOLIC PANEL,BMP [CHEM] Q3H 08/20/20 00:00 BASIC METABOLIC PANEL,BMP [CHEM] Q4H 08/20/20 04:00 BASIC METABOLIC PANEL,BMP [CHEM] Q4H 08/20/20 08:00 BASIC METABOLIC PANEL,BMP [CHEM] Q4H - Plan Plan:: 08/16/2020 The patient is a 65-year-old lady who had apparently consumed relatively small amount of [employer] condenser cleaner that had methanol. Patient's initial blood gas was normal. The patient will be continued on fomepizole for now. The patient has a history of acquired hypothyroidism and hypertension and her medications have been continued. Patient will also have DVT prophylaxis with the use of Lovenox. She has been encouraged to ambulate. The records have indicated that the patient will need to be on the omeprazole for at least 2-1/2 days. If poison control concurs the patient might be appropriate for discharge today. This is due to the fact that the patient's laboratory testing is essentially normal. 08/17/2020 Patient continues to feel well. She is tolerating diet and has no significant symptoms. Poison control recommends continuing with fomepizole until a negative toxic alcohol levels. Unfortunately, this is a send out test and we may not get her first test and tell tomorrow. We will continue her treatment until we are completely comfortable with a negative result. 08/18/2020 Patient continues on fomepizole without adverse events. Anion gap with slightly elevated today. Continue on fomepizole. Unfortunately, we will not be able to get the methanol level in a reasonable time. Current plan is to give her another dose of fomepizole tonight and recheck BMP in the morning. Continue following with poison control. 08/19/2020 Patient continues to be asymptomatic. Last dose of fomepizole was last night and we will be planning on checking her BMP every 3 hours during the day and 4 hours at night. If her anion gap increases then we will restart fomepizole immediately. Otherwise, patient will be discharged in the morning.
[2020-08-19] MEDS: Losartan 25 MG Tab PO SCH (20:38)
[2020-08-20] MEDS ORDERED: Fomepizole 1.2 GM in Sodium Chloride 0.9% 100 ML IV ONE (03:30)
[2020-08-20] MEDS: Levothyroxine 50 MCG Tab PO SCH (06:29)
[2020-08-20] MEDS: Enoxaparin 40 MG/0.4 ML Syringe SUBCUT SCH (08:57)
--- NOTE | 2020-08-20 11:41 | PCM.DCSUM1 ---
Discharge Summary - Hospital Course HPI Initial Comments: Patient is a 65-year-old lady who had presented to the emergency department after accidental consumption of windshield cleaning fluid of which methanol was a deleon component. The patient says that she may have taken several sips and has had some nausea without vomiting. The patient says that she feels good today. She has no complaints. Both the patient and her are in transit to [facility]. In the emergency department Poison control was consulted and it was recommended that the patient be started on fomepizole in the emergency department. The patient was admitted secondary to the IV treatment and the use of IV Zofran. The patient also has been taking medication for hypertension as well as her hypothyroidism due to a previous thyroidectomy. The patient does not use tobacco. Diagnosis: Stroke: No - Discharge Data Discharge Date: 08/20/20 Discharge Disposition: Home, Self-Care 01 Condition: Good - Referral to Home Health Primary Care Physician: PCP Not In Area - Discharge Diagnosis/Problem(s) (1) Accidental poisoning by methanol SNOMED Code(s): 699133745 ICD Code: T51.1X1A - TOXIC EFFECT OF METHANOL, ACCIDENTAL (UNINTENTIONAL), INIT Status: Acute Priority: High Qualifiers: Encounter type: initial encounter Qualified Code(s): T51.1X1A - Toxic effect of methanol, accidental (unintentional), initial encounter (2) Acquired hypothyroidism SNOMED Code(s): 977105706 ICD Code: E03.9 - HYPOTHYROIDISM, UNSPECIFIED Status: Chronic Priority: Medium (3) Hypertension SNOMED Code(s): 71040471 ICD Code: I10 - ESSENTIAL (PRIMARY) HYPERTENSION Status: Chronic Priority: High Qualifiers: Hypertension type: essential hypertension Qualified Code(s): I10 - Essential (primary) hypertension - Patient Summary/Data Hospital Course: 08/16/2020 The patient is a 65-year-old lady who had apparently consumed relatively small amount of windshield room cleaner that had methanol. Patient's initial blood gas was normal. The patient will be continued on fomepizole for now. The patient has a history of acquired hypothyroidism and hypertension and her medications have been continued. Patient will also have DVT prophylaxis with the use of Lovenox. She has been encouraged to ambulate. The records have indicated that the patient will need to be on the omeprazole for at least 2-1/2 days. If poison control concurs the patient might be appropriate for discharge today. This is due to the fact that the patient's laboratory testing is essentially normal. 08/17/2020 Patient continues to feel well. She is tolerating diet and has no significant symptoms. Poison control recommends continuing with fomepizole until a negative toxic alcohol levels. Unfortunately, this is a send out test and we may not get her first test and tell tomorrow. We will continue her treatment until we are completely comfortable with a negative result. 08/18/2020 Patient continues on fomepizole without adverse events. Anion gap with slightly elevated today. Continue on fomepizole. Unfortunately, we will not be able to get the methanol level in a reasonable time. Current plan is to give her another dose of fomepizole tonight and recheck BMP in the morning. Continue following with poison control. 08/19/2020 Patient continues to be asymptomatic. Last dose of fomepizole was last night and we will be planning on checking her BMP every 3 hours during the day and 4 hours at night. If her anion gap increases then we will restart fomepizole immediately. Otherwise, patient will be discharged in the morning. 08/20/2020day of discharge Patient is asymptomatic. Her anion gap this morning was 11. Repeat Covid testing was negative. Patient will be discharged with Zofran ODT 4 mg every 6 hours as needed 5 tablets in case she does develop some nausea. Follow-up with her primary care provider as needed. - Patient Instructions Diet: Usual Diet as Tolerated Driving: May Drive Today Showering/Bathing: May Shower Notify Provider of: Fever - Discharge Plan *PRESCRIPTION DRUG MONITORING PROGRAM REVIEWED*: Not Applicable *COPY OF PRESCRIPTION DRUG MONITORING REPORT IN PATIENT ANNETTE: Not Applicable Prescriptions/Med Rec: Ondansetron [Zofran ODT] 4 mg PO Q6H PRN #5 tab.dis PRN Reason: nausea, able to take PO Home Medications: Home Meds Levothyroxine Sodium [Synthroid] 150 mcg PO 0600 08/15/20 [History] Losartan [Cozaar] 50 mg PO BEDTIME 08/15/20 [History] Ondansetron [Zofran ODT] 4 mg PO Q6H PRN #5 tab.dis 10/29/20 [Rx] Patient Handouts: Preventing Poisoning, Adult Referrals: DR Filiberto [Other] - Discharge Summary/Plan Comment DC Time >30 min.: Yes Discharge Summary/Plan Comment: Follow-up with primary care provider as needed. If she has any worsening of her symptoms she is needs to stop at the first hospital available. She is planning on traveling to [place] and then back to [place], [place]. - General Info Date of Service: 08/20/20 Admission Dx/Problem (Free Text: Admission Diagnosis/Problem Admission Diagnosis/Problem Toxic effect of methanol, unintentional Subjective Update: She is doing well. No complaints. Functional Status: Reports: Pain Controlled - Review of Systems General: Reports: No Symptoms HEENT: Reports: No Symptoms Pulmonary: Reports: No Symptoms Cardiovascular: Reports: No Symptoms Gastrointestinal: Reports: No Symptoms Musculoskeletal: Reports: No Symptoms Skin: Reports: No Symptoms Neurological: Reports: No Symptoms Psychiatric: Reports: No Symptoms - Patient Data Vitals - Most Recent: Last Vital Signs Temp 98.8 F 08/20/20 09:54 Pulse 74 08/20/20 09:03 Resp 18 08/20/20 09:03 BP 133/75 08/20/20 09:03 Pulse Ox 97 08/20/20 09:03 Weight - Most Recent: 81.238 kg I&O - Last 24 hours: Intake & Output 08/19/20 08/20/20 08/20/20 22:59 06:59 14:59 Intake Total 2340 1300 180 Output Total 1600 1000 Balance 740 300 180 Lab Results - Last 24 hrs: Laboratory Results - last 24 hr 08/19/20 08/19/20 08/19/20 Range/Units 11:23 15:14 17:10 VBG pH (7.30-7.40) VBG pCO2 (41-51) mmHg VBG pO2 (40-80) mmHG VBG HCO3 (22-26) meq/L VBG Base Excess (-4.0-2.0) O2 Delivery Device Sodium 136 136 134 L (136-145) mEq/L Potassium 4.3 5.1 4.5 (3.5-5.1) mEq/L Chloride 101 99 98 (98-107) mEq/L Carbon Dioxide 27 27 26 (21-32) mEq/L Anion Gap 12.3 15.1 H 14.5 (5-15) BUN 9 8 7 (7-18) mg/dL Creatinine 0.6 0.6 0.6 (0.55-1.02) mg/dL Est Cr Clr Drug Dosing 80.72 80.72 80.72 mL/min Estimated GFR (MDRD) > 60 > 60 > 60 (>60) mL/min BUN/Creatinine Ratio 15.0 13.3 L 11.7 L (14-18) Glucose 110 108 123 H (80-115) mg/dL Calcium 8.9 9.6 9.2 (8.5-10.1) mg/dL SARS-CoV-2 RNA (LUCA) (NEGATIVE) 08/19/20 08/19/20 08/20/20 Range/Units 20:13 22:58 02:38 VBG pH (7.30-7.40) VBG pCO2 (41-51) mmHg VBG pO2 (40-80) mmHG VBG HCO3 (22-26) meq/L VBG Base Excess (-4.0-2.0) O2 Delivery Device Sodium 133 L 132 L 134 L (136-145) mEq/L Potassium 4.5 4.2 4.0 (3.5-5.1) mEq/L Chloride 98 97 L 97 L (98-107) mEq/L Carbon Dioxide 24 25 23 (21-32) mEq/L Anion Gap 15.5 H 14.2 18.0 H (5-15) BUN 7 9 8 (7-18) mg/dL Creatinine 0.6 0.5 L 0.6 (0.55-1.02) mg/dL Est Cr Clr Drug Dosing 80.72 96.86 80.72 mL/min Estimated GFR (MDRD) > 60 > 60 > 60 (>60) mL/min BUN/Creatinine Ratio 11.7 L 18.0 13.3 L (14-18) Glucose 135 H 116 H 105 (80-115) mg/dL Calcium 9.1 8.9 9.0 (8.5-10.1) mg/dL SARS-CoV-2 RNA (LUCA) (NEGATIVE) 08/20/20 08/20/20 08/20/20 Range/Units 04:28 04:29 08:10 VBG pH 7.38 (7.30-7.40) VBG pCO2 44.3 (41-51) mmHg VBG pO2 40.0 (40-80) mmHG VBG HCO3 25.8 (22-26) meq/L VBG Base Excess 0.9 (-4.0-2.0) O2 Delivery Device Room air Sodium 133 L 132 L (136-145) mEq/L Potassium 4.1 4.7 (3.5-5.1) mEq/L Chloride 97 L 97 L (98-107) mEq/L Carbon Dioxide 25 28 (21-32) mEq/L Anion Gap 15.1 H 11.7 (5-15) BUN 7 6 L (7-18) mg/dL Creatinine 0.6 0.6 (0.55-1.02) mg/dL Est Cr Clr Drug Dosing 80.72 80.72 mL/min Estimated GFR (MDRD) > 60 > 60 (>60) mL/min BUN/Creatinine Ratio 11.7 L 10.0 L (14-18) Glucose 95 100 (80-115) mg/dL Calcium 9.1 9.1 (8.5-10.1) mg/dL SARS-CoV-2 RNA (LUCA) (NEGATIVE) 08/20/20 Range/Units 09:50 VBG pH (7.30-7.40) VBG pCO2 (41-51) mmHg VBG pO2 (40-80) mmHG VBG HCO3 (22-26) meq/L VBG Base Excess (-4.0-2.0) O2 Delivery Device Sodium (136-145) mEq/L Potassium (3.5-5.1) mEq/L Chloride (98-107) mEq/L Carbon Dioxide (21-32) mEq/L Anion Gap (5-15) BUN (7-18) mg/dL Creatinine (0.55-1.02) mg/dL Est Cr Clr Drug Dosing mL/min Estimated GFR (MDRD) (>60) mL/min BUN/Creatinine Ratio (14-18) Glucose (80-115) mg/dL Calcium (8.5-10.1) mg/dL SARS-CoV-2 RNA (LUCA) Negative (NEGATIVE) Med Orders - Current: Current Medications Docusate Sodium (Colace) 100 mg PO BID PRN PRN Reason: Constipation Enoxaparin Sodium (Lovenox) 40 mg SUBCUT DAILY [facility] Last Admin: 08/20/20 08:57 Dose: Not Given Documented by: Levothyroxine Sodium (Synthroid) 150 mcg PO 0600 [facility] Last Admin: 08/20/20 06:29 Dose: 150 mcg Documented by: Losartan Potassium (Cozaar) 50 mg PO BEDTIME [facility] Last Admin: 08/19/20 20:38 Dose: 50 mg Documented by: Ondansetron HCl (Zofran Odt) 4 mg PO Q6H PRN PRN Reason: nausea, able to take PO Last Admin: 08/20/20 06:32 Dose: 4 mg Documented by: Sodium Chloride (Saline Flush) 10 ml FLUSH ASDIRECTED PRN PRN Reason: Keep Vein Open Discontinued Medications Fomepizole 1 gm/ Sodium (Chloride) 101 mls @ 240.38 mls/hr IV Q12HR [facility] Last Admin: 08/17/20 09:08 Dose: 2.38 gm/hr, 240.38 mls/hr Documented by: Sodium Chloride (Normal Saline) 1,000 mls @ 150 mls/hr IV ASDIRECTED [facility] Last Admin: 08/15/20 20:29 Dose: 150 mls/hr Documented by: Sodium Chloride (Normal Saline) 1,000 mls @ 100 mls/hr IV ASDIRECTED [facility] Last Admin: 08/16/20 05:05 Dose: 100 mls/hr Documented by: Fomepizole 1.2 gm/ Sodium (Chloride) 101.2 mls @ 200 mls/hr IV Q12HR [facility] Last Admin: 08/19/20 12:31 Dose: Not Given Documented by: Fomepizole 1 gm/ Sodium (Chloride) 101 mls @ 200 mls/hr IV Q12HR [facility] Last Admin: 08/20/20 07:36 Dose: Not Given Documented by: Fomepizole 1.2 gm/ Sodium (Chloride) 101.2 mls @ 202.4 mls/hr IV ONETIME ONE Stop: 08/20/20 03:59 Last Admin: 08/20/20 07:36 Dose: Not Given Documented by: Losartan Potassium (Cozaar) 50 mg PO ONETIME ONE Stop: 08/16/20 00:16 Last Admin: 08/16/20 00:17 Dose: 50 mg Documented by: Ondansetron HCl (Zofran) 4 mg IVPUSH ONETIME ONE Stop: 10/24/20 20:15 Last Admin: 08/15/20 20:29 Dose: 4 mg Documented by: - Exam Quality Assessment: Denies: Supplemental Oxygen General: Reports: Alert, Oriented HEENT: Reports: Pupils Equal, Mucous Membr. Moist/High [place] Neck: Reports: Supple Lungs: Reports: Clear to Auscultation, Normal Respiratory Effort Cardiovascular: Reports: Regular Rate, Regular Rhythm GI/Abdominal Exam: Normal Bowel Sounds, Soft, Non-Tender, No Distention Extremities: Normal Inspection, Normal Range of Motion, Non-Tender, No Pedal Edema, Normal Capillary Refill Skin: Reports: Warm, Dry, Intact Neurological: Reports: No New Focal Deficit Psy/Mental Status: Reports: Alert, Normal Affect, Normal Mood
== END 2020-08-20 12:40 | disposition home or self-care (01) | DRG 918 ==
LOC: JD.ED 19:38 → JD.MS 23:11
PROVIDERS: ADMIT Internal Medicine; ATTEND Internal Medicine
DX: T51.1X1A Toxic effect of methanol, accidental (unintentional), initial encounter (principal); E03.9 Hypothyroidism, unspecified; I10 Essential (primary) hypertension; Z20.828 Contact with and (suspected) exposure to other viral communicable diseases; Z79.890 Hormone replacement therapy; Z79.899 Other long term (current) drug therapy; E66.9 Obesity, unspecified; Z96.659 Presence of unspecified artificial knee joint; Z68.30 Body mass index [BMI] 30.0-30.9, adult
CPT/HCPCS: 36415; 36600; 80048; 80053; 80307; 82693; 82803; 82962; 83930; 85025; 85049; 93005; 93010; 96365; 96375; 99284; 99285-25; A9270-GY; J1451; J2405; J7030; U0002